=== PATIENT | male | born 1985 | race Caucasian/White ===

== ENCOUNTER 2023-09-29 19:37 | Emergency (ER) | payer OTHER, SELFPAY ==
[2023-09-29 19:43] VITALS: BP 124/82
[2023-09-29 21:49] LABS: Urine Albumin Negative (Neg - Trace); Urine Bilirubin Negative (Negative); Urine Character Clear (Clear); Urine Color Yellow; Urine Glucose Negative (Negative); Urine Ketone Trace (Negative); Urine Leukocyte Negative (Negative); Urine Nitrite Negative (Negative); Urine Occult Blood Negative (Negative); Urine Urobilinogen Negative (Neg - 1+)
--- NOTE | 2023-09-29 21:55 | ED.GENMED ---
History of Present Illness
General
Chief Complaint: Male Genito-Urinary Symptoms
Source: patient
Exam Limitations: none
Time Seen by Provider: 09/29/23 21:54
Travel History
Have you had any contact with someone who has COVID-19?: No
Do you have any symptoms of coronavirus? Fever > 100 degrees, chills, cough, shortness of breath, sore throat, loss of taste or smell, muscle aches, or headache?: No
History of Present Illness
History of Present Illness:
This is a 37 year old male that comes in with c/o left testicular pain and blood in his semen. States that he has had some testicular discomfort for the past month. States that it has gotten worse the past couple of days. States that he also has
bright red blood in his semen that started the past couple of days. States that his found out last night and that is why he is here. Denies any fever, chills, chest pain, SOB, abd pain, nausea, vomiting, diarrhea, headache, dizziness, urinary
burning.
Past History
Past History
ED Past Medical History: Arrthythmia (Palpitations); Negative Asthma, HTN, Hypercholesterolemia or NIDDM
ED Past Surgical History: Appendectomy and Tonsilectomy
Social History
Tobacco: Former smoker
Alcohol: Occasional
Personal:
Living: with family
Review of Systems
Review of Systems
All Other Systems: ROS reviewed and negative except as documented in HPI and ROS
Constitutional: Reports no symptoms; Denies fever or chills
Respiratory: Reports no symptoms; Denies cough or trouble breathing
Cardiac: Reports no symptoms; Denies chest pain
ABD/GI: Denies abdominal pain, nausea, vomiting or diarrhea
: Reports other (Left testicular tenderness); Denies dysuria, frequency or urgency
Musculoskeletal: Reports no symptoms
Skin: Reports no symptoms
Neurological: Reports no symptoms; Denies dizzy or headache
Psychiatric: Reports no symptoms
Phy Exam
General Physical Exam
General Presentation: well appearing and no apparent distress
General age: appears stated age
General Skin: warm and dry
General Habitus: normal
General Mental: alert
General Hydration: appears well hydrated
ENT Exam
ENT Exam: TM's normal, pharynx normal and neck supple
Eye Exam
Eye Exam: EOMI
Cardiovascular Exam
Cardiovascular Exam: regular rate/rhythm, no edema, no murmur and normal peripheral pulses
Pulmonary Exam
Pulmonary Exam: lungs clear, no respiratory distress, no rales, chest non tender, no crackles, no rhonchi, no wheezing and no cough
Gastrointestinal Exam
Gastrointestinal Exam: normal bowel sounds, non tender, soft, no organomegaly, no pulsatile mass and non distended
Genitourinary Exam Male
Exam Male: circumcised, no discharge, normal external genitalia, no evidence of trauma, no lesions, no testicular swelling and other (Slight left testicular tenderness with palpation)
Musculoskeletal Exam
Musculoskeletal Exam: full ROM and no edema
Skin Exam
Skin Exam: normal color, warm/dry, no rash and no petechia
Psychiatric Exam
Psychiatric Exam: normal mood/affect
Course
Orders/Labs/Results
Orders:
Orders
09/29/23 19:50
US Scrotum Urgent
Comment:
Reason For Exam: testicular pain
09/29/23 21:34
Urinalysis Reflex To Culture Urgent
Date Specimen was Collected: 09/29/23
Time Specimen was Collected: 20:01
09/29/23 21:56
Add On- LAB Urgent
Tests Added?: Urine GC, Chlamydia
Abnormal Lab Results
09/29/23
21:34
Urine Ketones Trace A
(Negative)
Urine negative for infection or blood
Vital Signs
Initial and Last Documented VS:
Initial Vital Signs
Temp Pulse Resp BP Pulse Ox
98.1 F 81 20 124/82 97
09/29/23 19:43 09/29/23 19:43 09/29/23 19:43 09/29/23 19:43 09/29/23 19:43
Last Documented Vital Signs
Temp Pulse Resp BP Pulse Ox
98.1 F 81 20 124/82 97
09/29/23 19:43 09/29/23 19:43 09/29/23 19:43 09/29/23 19:43 09/29/23 19:43
MDM/Problems Addressed
Differential Diagnosis Includes:
STD, UTI,
MDM/Problems Addressed:
This is a 37 year old male that comes in with c/o left testicular discomfort with blood in his Semen. States that the tenderness started about a month ago and then the blood in his semen started the past couple of days.
Will get US and urine.
Back into see patient. Explained that his urine is negative for any infection or blood and that his US is normal. Will check for GC and Chlamydia and will have patient follow up with the family doctor.
Chronic conditions affecting care:
NA
Acute Exacerbation and/or Progression of Chronic Illness:
NA
*Radiology
Radiology exam reviewed: radiology read reviewed (US scrotum=No sonographic evidence for testicular torsion, orchitis, or epididymitis. )
*Pulse Oximetry
Patient hypoxic: no
*EKG
Interpreted by ED Provider?: NA
Rate: EKG- N/A
*Commuter Pilot Interpretation
Rate: Commuter Pilot- N/A
*Critical Care Note
Total Time (30-74mins, 75-104mins- exclusive of procedures): Not Applicable
ED Attending Note
-
Portions of this chart may have been created with voice recognition software.� Occasional wrong word or��sound alike� substitutions may have occurred due to the inherent limitations of voice recognition software.
Discharge Plan
Departure
Patient Disposition: Home (Routine Discharge)
Date of Disposition: 09/29/23
Time of Disposition: 22:30
Patient with high blood pressure during this ER visit?: No
Condition: Good
Covid-19: Not Applicable
Discharge Problem:
Testicle tenderness
Referrals:
Ric Canas MD [Active] - Follow up in 5-7 days
Maicol Gunderson MD [Family Provider] -
Activity Restrictions/Additional Instructions:
As discussed, your urine is negative for infection or blood. Your Ultrasound is unremarkable. A urine GC and Chlamydia was added and this will not come back tonight. Please follow up with the Urologist for further evaluation. IF YOU HAVE ANY OTHER
CONCERNS PLEASE RETURN TO THE EMERGENCY ROOM.
Interventions
Interventions:
*Risk Screen - Suicide Last Done: 09/29/23 19:43
*General Assessment Last Done: 09/29/23 19:43
ED-Male Genitourinary Assessment Last Done: 09/29/23 21:33
== END 2023-09-29 22:38 | disposition home or self-care (01) ==
LOC: EMR 19:37
PROVIDERS: Emergency Medicine; EMERGENCY PHYSICIAN Emergency Medicine; FAMILY PHYSICIAN Family Medicine
DX: N50.812 Left testicular pain (principal); Z87.891 Personal history of nicotine dependence
CPT/HCPCS: 99284; 76870; 81003; 87491; 87591; 93976